=== PATIENT | female | born 1965 | race Caucasian/White ===

== ENCOUNTER 2024-07-29 10:57 | Inpatient (IN) | payer OTHER, SELFPAY ==
--- NOTE | ~2024-07-29 | CT_ITS ---
EXAMINATION: CTA NECK WITH CONTRAST (STROKE) CTA BRAIN WITH CONTRAST (STROKE) CLINICAL INFORMATION: Suspect acute stroke. Assess for major vessel occlusion. Please call report. COMPARISON: None available. TECHNIQUE: CTA of the head and neck was performed in the axial plane from the mediastinum to the skull vertex using 70 mL Omnipaque 350 intravenous contrast. Additional reformatted multiplanar images including maximum intensity projection MIP images are generated on the CT workstation. This CT examination was performed using dose optimization techniques as appropriate, variously including the following: *Automated exposure control *Adjustment of mA and/or kV according to patient size (this includes techniques or standardized protocols for targeted exams where dose is matched to indication/reason for exam; i.e. extremities or head) *Use of iterative reconstruction technique DLP: 650 mGy/cm. FINDINGS: The degree of stenosis determined by criteria similar to NASCET. Brain: Contrast enhanced CT reveals normal symmetry of vascularity throughout the cerebral and cerebellar hemispheres. No focal enhancing mass or mass effect seen. The lateral ventricles are symmetrical and appear almost normal. Chest CTA: The thoracic arch with widely patent. There is a three-vessel branching of the arch with widely patent branches. There is normal origin of bilateral carotid arteries and bilateral vertebral arteries of the subclavian artery. The left vertebral artery is slightly larger and likely dominant compared to right side. Neck CTA: Both vertebral arteries are widely patent throughout the neck without dissection or aneurysm. Intracranially the left vertebral artery is larger and likely dominant. Both carotid arteries are widely patent at their origin and to the course of the neck. The bifurcate normally into internal and extra carotid artery. Both internal carotid arteries are widely patent throughout the neck without any aneurysm or dissection. The extent into the petrous canal and are patent. Visualized cervical spine, alignment and the paravertebral soft tissues are normal. The neck soft tissues are unremarkable. Brain CTA: There is normal bilateral symmetrical internal carotid artery extending through the petrous, cavernous and supraclinoid ICA segment. The left internal carotid artery bifurcates into anterior and middle cerebral artery. The anterior middle sacral arteries are widely patent. There is a prominent anterior connecting artery between the left A2 and right A2 segments. The M2 segment on the left is widely patent. There is no paucity of vascularity in left cerebral hemisphere. The right internal carotid supraclinoid segment continues is right MCA. The anterior cerebral arteries not visualized. This could be congenital hypoplastic. However new or old thrombus resulting in occlusion is hard to exclude. Patient apparently has an outside A which is not available at this time for comparison. Bilateral transverse, sigmoid sinuses an internal jugular vein are widely patent. The straight sinus, internal cerebral veins and superior sagittal sinus is patent. 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 Similar findings can be seen with acute embolus. However similar findings were noted on the remote CTA of the brain after speaking to IR Department at [facility]. The old CTA brain is not available at our institution. No intracranial aneurysm or dissection seen. The venous sinuses are patent No carotid or vertebral artery dissection, occlusion or aneurysm. This critical test result is communicated to: Dr. Black Aleman in ER immediately after the exam was completed at 11:30 AM Electronically signed by: John Hart MD 07/29/2024 03:22 PM EDT
--- NOTE | ~2024-07-29 | CT_ITS ---
EXAMINATION: CT HEAD WITHOUT CONTRAST (STROKE PROTOCOL) CLINICAL INFORMATION: Stroke protocol. Confusion and expressive achalasia COMPARISON: None available. TECHNIQUE: Contiguous axial imaging was performed from the skull base to vertex without intravenous administration of contrast. This CT examination was performed using dose optimization techniques as appropriate, variously including the following: *Automated exposure control *Adjustment of mA and/or kV according to patient size (this includes techniques or standardized protocols for targeted exams where dose is matched to indication/reason for exam; i.e. extremities or head) *Use of iterative reconstruction technique DLP: 597 mGy/cm. FINDINGS: There is no acute intra-axial, extra-axial bleed, masses or midline shift. There is no acute infarction in evolution. There is no edema. Montez to white matter differentiation is maintained normal. Bone windows reveal no calvarial abnormality. There is no scalp soft tissue abnormality. Bilateral paranasal sinuses and mastoid air cells are well-aerated. CT/CT head for STROKE IMPRESSION: No acute intracranial process seen. 07/29/2024 This critical result was discussed with Dr. Jordan at 11:30 a.m. on 07/29/2024. It was ascertained that the content and urgency of the report was understood at the time of direct communication. Electronically signed by: John Hart MD 07/29/2024 03:00 PM EDT
--- NOTE | ~2024-07-29 | MR_ITS ---
EXAMINATION: MR BRAIN WITHOUT IV CONTRAST HISTORY: Expressive aphasia R/O stroke TECHNIQUE: Sagittal T1, and axial T1, FLAIR, T2, gradient echo, and diffusion weighted MR images of the brain were obtained. COMPARISON: Correlation is made with an unenhanced head CT performed earlier in the day. FINDINGS: The brain parenchyma is unremarkable, demonstrating normal miller/white differentiation. No foci of abnormal signal intensity are identified. The ventricular system is normal in size and configuration. There is no mass effect or midline shift. No intra or extra-axial fluid collections are identified. There are no foci of restricted diffusion. Normal vascular flow voids are noted in the basilar and carotid arteries. The visualized paranasal sinuses are clear. MR/MR head/brain wo con IMPRESSION: Unremarkable MRI of the brain without contrast. Electronically signed by: Pato Copeland MD 07/29/2024 03:45 PM EDT
[2024-07-29 11:08] VITALS: BP 164/87; PULSE 76; RESP 16; O2SAT 97; BMI 31.1
[2024-07-29 11:11] LABS: Glucose, Whole Blood 243 mg/dL (60-115)
--- NOTE | 2024-07-29 11:13 | ED.NEUROSD ---
HPI - Neuro Symptoms/Deficit General Chief Complaint: Neuro Symptoms/Deficit Stated Complaint: High Sugar AMS Time Seen by Provider: 07/29/24 11:03 Source: patient and family (Lfbthe-to-eyk Harika) Mode of arrival: ambulatory Limitations: no limitations History of Present Illness HPI Narrative: 59-year-old female with a history of diabetes mellitus, diverticulitis, lupus, atrial fibrillation status post surgical procedure (3 years prior) on Eliquis who presents emergency department for evaluation of altered mental status with difficulty word finding . 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 The patient states that she started to feel funny and dizzy. She then had difficulty finding words. She did call her doctor and then called her ogwvfq-lu-tui Harika who was here in the emergency department. Harika states she got the phone call at around 10:30 and drove the patient here to the emergency department. During the drive the patient was coherent and was able and was able to use big words. The patient told her acdccc-cu-xgn that she has not been on her diabetic medications for some time since her insurance would not pay for them and no her sugars have been high. She did tell her ktjhrx-ns-bnw that she had diabetic ketoacidosis once in the past and her symptoms felt similar to that. Upon arrival to the emergency department the patient had increased difficulty with word finding and the ydfoft-mo-rxe notes that the patient is now not able to pronounce big words but he has only using small words to communicate. I evaluated the patient immediately upon her arrival into the emergency department. Patient has difficulty with word finding but is able to understand language without any difficulty. She was able to identify a pen, a watch, she was able to identify the month, year, her age and her date. Related Data Home Medications ?Medication ?Instructions ?Recorded ?Confirmed apixaban 5 mg tablet (Eliquis) 5 mg PO BID 07/29/24 07/29/24 cholecalciferol (vitamin D3) 50 50 mcg PO DAILY 07/29/24 07/29/24 mcg (2,000 unit) tablet (Vitamin D3) cyanocobalamin (vitamin B-12) 500 1,000 mcg PO DAILY 07/29/24 07/29/24 mcg tablet (Vitamin B-12) dutasteride 0.5 mg capsule 0.5 mg PO DAILY 07/29/24 07/29/24 guselkumab 100 mg/mL subcutaneous 100 mg subcut Q8W 07/29/24 07/29/24 auto-injector (Tremfya) magnesium glycinate 100 mg PO DAILY 07/29/24 07/29/24 metoprolol succinate 25 mg 25 mg PO DAILY 07/29/24 07/29/24 tablet,extended release 24 hr omeprazole 20 mg capsule,delayed 20 mg PO DAILY@0630 07/29/24 07/29/24 release pramipexole 0.125 mg tablet 0.375 mg PO DAILY 07/29/24 07/29/24 pregabalin 25 mg capsule 25 mg PO BEDTIME 07/29/24 07/29/24 Previous Rx's ?Medication ?Instructions ?Recorded cefuroxime axetil 250 mg tablet 250 mg PO BID #6 tabs 07/30/24 glipizide 2.5 mg tablet, extended 2.5 mg PO DAILY #90 tabs 07/30/24 release 24 hr Allergies Allergy/AdvReac Type Severity Reaction Status Date / Time Penicillins [PCN] Allergy Unknown Verified 07/29/24 11:09 food dyes Allergy Unknown Uncoded 07/29/24 16:25 Review of Systems Review of Systems: Yes Unobtainable due to mental condition [facility] Past Medical History Medical History Lupus (systemic lupus erythematosus) Paroxysmal A-fib Social History Social History Household Members: Family Housing: House Do you presently have visiting nurse or other home services: No Unable to assess alcohol history related to: Unable to respond Alcohol intake: never Patient Tobacco Use Status: Former Tobacco user service: No Physical Exam Vital Signs: Vital Signs: Last Vital Signs Temp 98.0 F 07/30/24 11:14 Pulse 70 07/30/24 11:14 Resp 18 07/30/24 11:14 BP 137/76 07/30/24 11:14 Pulse Ox 96 07/30/24 11:14 O2 Del Method Room Air 07/30/24 11:14 BMI result Body Mass Index 31.1 Vital signs were no Exam: General: Awake, that has an expressive aphasia which is slow but comprehensible, she has no difficulty understanding language. Head: Normocephalic, atraumatic EENT: PERRL, Lids normal, sclera normal, conjunctiva normal, nose normal , ears normal, throat without erythema or exudates Neck: Supple, no adenopathy Lung: breath sounds symmetric, no wheezing, rales or rhonchi Chest: symmetric movement, nontender Heart: regular rate and rhythm, normal S1, S2 no murmurs or rubs Abdomen: soft, non-tender, nondistended, normal bowel sounds Back: no vertebral tenderness, no CVAT Extremities: no deformities, moves all extremities symmetrically Neuro: General: Awake, alert, oriented, expressive aphasia no difficulty with comprehension cranial nerves This is 11 detector treat of okay can you spell the last on 8 for he ate [place] and dab IM you get permanent thank you buttock cranial nerves intact, moves all Cranial nerves: Cranial nerves 2-12 are intact Strength: 5/5 symmetric Medications Administered Discontinued Medications Generic Name Dose Route Start Last Admin Trade Name Freq PRN Reason Stop Dose Admin Apixaban 5 mg 07/29/24 13:27 07/29/24 13:40 Apixaban 5 Mg Tablet PO 07/29/24 13:28 5 mg ONCE ONE Administration Aspirin 81 mg 07/29/24 14:45 07/30/24 09:03 Aspirin 81 Mg Tab.Chew PO Not Given DAILY NILSA Ceftriaxone Sodium 1 gm 07/29/24 16:00 07/29/24 16:44 Ceftriaxone Sodium 1 Gm Vial IVPUSH 1 gm Q24H NILSA Administration Sodium Chloride 1,000 mls @ 999 mls/hr 07/29/24 11:15 07/29/24 15:54 Ns IV 07/29/24 12:15 Infused .Q1H1M NILSA Infusion Insulin Human Lispro 0 unit 07/29/24 21:00 07/30/24 12:21 Insulin Lispro 100 Unit/Ml 3 Ml Vial SUBCUT 2 unit QIDACHS NILSA Administration Protocol Iohexol 70 ml 07/29/24 11:25 07/29/24 11:29 Iohexol 350 Mg/Ml 100 Ml Infus..Btl IV 07/29/24 11:26 70 ml ONCE ONE Administration Sodium Chloride 3 ml 07/29/24 16:00 07/30/24 09:05 0.9 % Sodium Chloride Flush 3 Ml Syringe IVFLUSH 3 ml QSHIFT NILSA Administration Medical Decision Making Medical Decision Making MDM Narrative: 59-year-old female with a history of diabetes mellitus, diverticulitis, lupus, atrial fibrillation status post surgical procedure (3 years prior) on Eliquis who presents emergency department for evaluation of altered mental status with difficulty word finding . 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 The patient states that she started to feel funny and dizzy. She then had difficulty finding words. She did call her doctor and then called her mowqxu-so-nkd Harika who was here in the emergency department. Harika states she got the phone call at around 10:30 and drove the patient here to the emergency department. During the drive the patient was coherent and was able and was able to use big words. The patient told her djjupw-df-uev that she has not been on her diabetic medications for some time since her insurance would not pay for them and no her sugars have been high. She did tell her nkdsdc-eo-qnl that she had diabetic ketoacidosis once in the past and her symptoms felt similar to that. Upon arrival to the emergency department the patient had increased difficulty with word finding and the glrvoo-vd-lrt notes that the patient is now not able to pronounce big words but he has only using small words to communicate. I evaluated the patient immediately upon her arrival into the emergency department. Patient has difficulty with word finding but is able to understand language without any difficulty. She was able to identify a pen, a watch, she was able to identify the month, year, her age and her date. Vital signs were normal. Physical examination revealed an expressive aphasia with no other neurologic abnormalities. NIH stroke scale was 1. Differential diagnosis: ?Includes but is not limited to TIA, stroke, intracranial bleed, metabolic encephalopathy Course: My interpretation patient's laboratory evaluation is as follows: Normocytic anemia with an H&H of 12.6 and 36.9 with a MCV of 83.1. PT/INR and PTT were normal. VBG was normal with a pH of 7.40. BUN elevated 17 with a normal creatinine. Glucose elevated 208. Lactic acid elevated 2.2. Beta hydroxybutyrate was negative. Troponin was below detectable limits. UA was positive for nitrates negative for leukocyte esterase. Microscopic revealed 0-2 RBCs, 0-5 WBCs, 0 2 squamous cells, 4+ bacteria. Despite the high bacteria count I suspect that this is negative for urinary tract infection. CT brain was read by our radiologist Dr. Hart: No acute bleed or stroke seen CT angiogram head and neck was read by our radiologist, Dr. 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 He also made the point that this this finding would not explain her aphasia was you would be secondary to a left MCA clot. I also discuss the patient's presentation with our neurologist, Dr. Biswas the patient is on Eliquis and therefore she is not a TNK candidate. He recommended that the patient get an MRI of the brain and be admitted for further evaluation. The patient took her Eliquis last night and did not take her morning dose. Dr. Peña recommended continuing the patient's Eliquis 13:37 I did discuss the patient's presentation with the covering hospitalist, physician paperhanger assistant Meera Sousa and the patient was accepted onto the hospitalist service Admission/Observation Consideration of admission/observation: Escalation of care including admission/observation considered (Yes) Consult Healthcare Provider Management of the patient was discussed with: Hospitalist and Wedding Consultant ([facility] neurologist Dr. Biswas, [facility] interventional neurologist) Lab Data MDM Lab Attestation statement: I reviewed the patient's lab results. 07/30/24 06:22 07/29/24 11:48 Labs: Lab Results 07/29/24 07/29/24 07/29/24 Range/Units 11:05 11:33 11:47 WBC 5.0 (4.8-10.8) X10*3/uL RBC 4.44 (4.20-5.50) X10*6/uL Hgb 12.6 (12.0-16.0) g/dl Hct 36.9 L (37.0-47.0) % MCV 83.1 (80.0-98.0) fL MCH 28.4 (27.0-33.0) pg MCHC 34.1 (31.0-35.0) g/dl RDW 13.8 (11.0-16.0) % Plt Count 121 L (160-400) X10*3/uL MPV 10.3 (9.4-12.3) fL Immature Gran % (Auto) 0.6 H (0.0-0.4) % Neut % (Auto) 74.0 H (45-73) % Lymph % (Auto) 18.6 L (20-40) % Karnes % (Auto) 5.2 (2-11) % Eos % (Auto) 1.2 (0-4) % Baso % (Auto) 0.4 (0-2) % Lymph # (Auto) 0.9 L (1.2-4.9) X10*3/uL Karnes # (Auto) 0.3 (0.1-1.2) X10*3/uL Eos # (Auto) 0.1 (0.0-0.4) X10*3/uL Baso # (Auto) 0.0 (0.0-0.2) X10*3/uL Abs Immat Gran (auto) 0.03 (0.00-0.03) X10*3/uL Absolute Neuts (auto) 3.7 (2.0-8.3) x10*3/uL Absolute Nucleated RBC 0.000 (0.0-0.012) X10*3/uL Nucleated RBC % (auto) 0.0 (0.0-0.2) /100WBC PT 11.4 (10.9-12.4) SEC Whole Blood PT 12.0 (11.1-13.5) sec INR 1.0 (0.9-1.1) Whole Blood INR 1.0 (0.9-1.1) APTT 33.4 (26.0-36.8) SEC VBG pH (7.32-7.43) VBG pCO2 mmHg VBG pO2 mmHg VBG HCO3 (22-26) mmol/L VBG O2 Saturation % VBG Base Excess mmol/L Sodium (135-145) mmol/L Potassium (3.3-5.1) mmol/L Chloride (96-108) mmol/L Carbon Dioxide (22-29) mmol/L Anion Gap (12-20) BUN (9-16) mg/dL Creatinine (0.5-1.4) mg/dL Estim Creat Clear Calc Estimated GFR POC Glucose 243 H (60-115) mg/dL Random Glucose (60-115) mg/dL Estimat Average Glucose mg/dL Hemoglobin A1c % (<6.0) % Lactic Acid (0.5-2.0) mmol/L Calcium (8.4-10.2) mg/dL Magnesium (1.6-2.6) mg/dL Total Bilirubin (0.0-1.0) mg/dL Direct Bilirubin (0.0-0.5) mg/dL AST (5-31) U/L ALT (0-31) U/L Alkaline Phosphatase (39-117) U/L Troponin I High Sens (<3.5-17.0) ng/L Total Protein (6.5-8.0) g/dL Albumin (3.5-5.0) g/dL Triglycerides (<150) mg/dL Cholesterol (<200) mg/dL LDL Cholesterol, Calc (<100) mg/dL HDL Cholesterol (>40) mg/dL Beta-Hydroxybutyrate (0.02-0.27) mmol/L Urine Color Urine Appearance Urine pH (5.0-9.0) Ur Specific Clyde (1.005-1.025) Urine Protein (Neg-Trace) mg/dL Urine Glucose (UA) (Negative) mg/dL Urine Ketones (Negative) mg/dL Urine Blood (Negative) Urine Nitrite (Negative) Ur Leukocyte Esterase (Negative) Urine RBC (0-2) /HPF Urine WBC (0-5) /HPF Ur Squamous Epith Cells (0-2) /HPF Urine Bacteria (None Seen) Hyaline Casts (0-2) /LPF Influenza Type A (PCR) (Negative) Influenza Type B (PCR) (Negative) RSV RNA Qual (PCR) (Negative) SARS-CoV-2 RNA (RT-PCR) (Negative) 07/29/24 07/29/24 07/29/24 Range/Units 11:48 11:56 12:28 WBC (4.8-10.8) X10*3/uL RBC (4.20-5.50) X10*6/uL Hgb (12.0-16.0) g/dl Hct (37.0-47.0) % MCV (80.0-98.0) fL MCH (27.0-33.0) pg MCHC (31.0-35.0) g/dl RDW (11.0-16.0) % Plt Count (160-400) X10*3/uL MPV (9.4-12.3) fL Immature Gran % (Auto) (0.0-0.4) % Neut % (Auto) (45-73) % Lymph % (Auto) (20-40) % Karnes % (Auto) (2-11) % Eos % (Auto) (0-4) % Baso % (Auto) (0-2) % Lymph # (Auto) (1.2-4.9) X10*3/uL Karnes # (Auto) (0.1-1.2) X10*3/uL Eos # (Auto) (0.0-0.4) X10*3/uL Baso # (Auto) (0.0-0.2) X10*3/uL Abs Immat Gran (auto) (0.00-0.03) X10*3/uL Absolute Neuts (auto) (2.0-8.3) x10*3/uL Absolute Nucleated RBC (0.0-0.012) X10*3/uL Nucleated RBC % (auto) (0.0-0.2) /100WBC PT (10.9-12.4) SEC Whole Blood PT (11.1-13.5) sec INR (0.9-1.1) Whole Blood INR (0.9-1.1) APTT (26.0-36.8) SEC VBG pH 7.40 (7.32-7.43) VBG pCO2 38 mmHg VBG pO2 75 mmHg VBG HCO3 24 (22-26) mmol/L VBG O2 Saturation 94.0 % VBG Base Excess -0.1 mmol/L Sodium 137 (135-145) mmol/L Potassium 4.1 (3.3-5.1) mmol/L Chloride 106 (96-108) mmol/L Carbon Dioxide 24 (22-29) mmol/L Anion Gap 11 L (12-20) BUN 17 H (9-16) mg/dL Creatinine 0.61 (0.5-1.4) mg/dL Estim Creat Clear Calc 101.6 Estimated GFR > 60 POC Glucose (60-115) mg/dL Random Glucose 208 H (60-115) mg/dL Estimat Average Glucose 146 mg/dL Hemoglobin A1c % 6.7 H (<6.0) % Lactic Acid 2.2 H* (0.5-2.0) mmol/L Calcium 9.6 (8.4-10.2) mg/dL Magnesium 2.0 (1.6-2.6) mg/dL Total Bilirubin 0.3 (0.0-1.0) mg/dL Direct Bilirubin 0.1 (0.0-0.5) mg/dL AST 18 (5-31) U/L ALT 20 (0-31) U/L Alkaline Phosphatase 111 (39-117) U/L Troponin I High Sens < 2.7 (<3.5-17.0) ng/L Total Protein 5.9 L (6.5-8.0) g/dL Albumin 3.7 (3.5-5.0) g/dL Triglycerides 242 H (<150) mg/dL Cholesterol 134 (<200) mg/dL LDL Cholesterol, Calc 47 (<100) mg/dL HDL Cholesterol 39 L (>40) mg/dL Beta-Hydroxybutyrate 0.08 (0.02-0.27) mmol/L Urine Color Yellow Urine Appearance Clear Urine pH 6.5 (5.0-9.0) Ur Specific Clyde >= 1.030 H (1.005-1.025) Urine Protein Negative (Neg-Trace) mg/dL Urine Glucose (UA) >=1000 H (Negative) mg/dL Urine Ketones Negative (Negative) mg/dL Urine Blood Negative (Negative) Urine Nitrite Positive H (Negative) Ur Leukocyte Esterase Negative (Negative) Urine RBC 0-2 (0-2) /HPF Urine WBC 0-5 (0-5) /HPF Ur Squamous Epith Cells 0-2 (0-2) /HPF Urine Bacteria 4+ (None Seen) Hyaline Casts 0-2 (0-2) /LPF Influenza Type A (PCR) NEGATIVE (Negative) Influenza Type B (PCR) NEGATIVE (Negative) RSV RNA Qual (PCR) NEGATIVE (Negative) SARS-CoV-2 RNA (RT-PCR) NEGATIVE (Negative) Independent Interpretation I performed an independent interpretation of an: EKG Interpretation: My independent interpretation patient's 12 EKG done on 07/29/2024 at 12:47 hours is as follows: Normal sinus rhythm rate of 75, normal RI interval, QRS duration QTC interval, no ST segment elevation, no ST segment depression, no significant T-wave abnormalities Q-wave in lead 3, no PACs, no PVCs, no old EKG for comparison Radiology Impression Discussion of test interpretation with radiology: I have reviewed the radiologist's reading. Radiologist Impression: Please see [facility] for radiologist reading Independent Historian Clinical information obtained from an independent historian. History obtained from or confirmed by: Spouse and Other (Tarzhu-qu-jox, Harika) Chronic Conditions Patient?s care impacted by: Diabetes and Other (Lupus) NIH Stroke Scale Internal: Initial- Upon Arrival Level of Consciousness: Alert Level of Consciousness Questions: Answers both questions correctly Level of Consciousness Commands: Performs both tasks correctly Best Gaze: Normal Visual: No visual loss Facial Palsy: Normal Motor Arm (Right): No drift Motor Arm (Left): No drift Motor Leg (Right): No drift Motor Leg (Left): No drift Limb Ataxia: Absent Sensory: Normal Best Language: Mild to moderate aphasia Dysarthia: Normal Extinction and Inattention: No abnormality Score: 1 Critical Care Time Critical Care Time Critical Care Time: Yes Total Critical Care Time: 75 Attestation: Critical Care: The patient was critically ill with a high probability of imminent or life threatening deterioration. I spent greater than 30 minutes of discontinuous time evaluating the patient,delivering critical care at the bedside, discussing and evaluating pertinent data with consultants. Critical care time does not include time spent performing separately billable procedures or teaching. Total time spent performing critical care was 75 minutes. Discharge Plan Discharge Clinical Impression: Stroke, Expressive aphasia Patient Disposition: Admitted As Inpatient Interventions: Admission Worksheet (ED) Last Done: 07/29/24 16:33 Discharge Date/Time: 07/29/24 17:25
[2024-07-29 11:16] VITALS: BP 120/68; PULSE 82; RESP 16; TEMP 36.2; O2SAT 97
[2024-07-29] MEDS: iohexoL 350 MG/ML 100 ML INFUS..BTL 70 ML IV (11:29)
[2024-07-29] MEDS: 0.9 % Sodium Chloride 1,000 ML 999 ML IV (11:42)
[2024-07-29 11:53] LABS: MANUAL DIFF FLAG NO
[2024-07-29 11:56] LABS: Basophils Percent Auto 0.4 % (0-2); Mean Corpuscular HGB Conc 34.1 g/dl (31.0-35.0); Mean Corpuscular Hemoglobin 28.4 pg (27.0-33.0); PLT CLUMP 1; Red Cell Distribution Width 13.8 % (11.0-16.0); SCAN SMEAR FLAG 1
[2024-07-29 11:57] LABS: Eosinophils Absolute Auto 0.1 X10*3/uL (0.0-0.4); Eosinophils Percent Auto 1.2 % (0-4); Hematocrit 36.9 % (37.0-47.0); Hemoglobin 12.6 g/dl (12.0-16.0); Imm Gran Abs Auto 0.03 X10*3/uL (0.00-0.03); Imm Gran Pct Auto 0.6 % (0.0-0.4); Lymphocytes Absolute Auto 0.9 X10*3/uL (1.2-4.9); Lymphocytes Percent Auto 18.6 % (20-40); Mean Corpuscular Volume 83.1 fL (80.0-98.0); Mean Platelet Volume 10.3 fL (9.4-12.3); Monocytes Absolute Auto 0.3 X10*3/uL (0.1-1.2); Monocytes Percent Auto 5.2 % (2-11); Neutrophils Absolute Auto 3.7 x10*3/uL (2.0-8.3); Red Blood Count 4.44 X10*6/uL (4.20-5.50)
[2024-07-29 12:00] LABS: Platelet Count 121 X10*3/uL (160-400)
[2024-07-29 12:01] LABS: VBG Base Excess -0.1 mmol/L; VBG HCO3 24 mmol/L (22-26); VBG pCO2 38 mmHg; VBG pO2 75 mmHg
[2024-07-29 12:01] LABS: Venous Blood Gas Refer to POC result
[2024-07-29 12:09] LABS: Prothrombin Time 11.4 SEC (10.9-12.4)
[2024-07-29 12:12] LABS: Partial Thromboplastin Time 33.4 SEC (26.0-36.8)
[2024-07-29 12:13] LABS: Alanine Aminotransferase 20 U/L (0-31); Albumin Level 3.7 g/dL (3.5-5.0); Anion Gap 11 (12-20); Aspartate Amino Transferase 18 U/L (5-31); Beta-Hydroxybutyrate 0.08 mmol/L (0.02-0.27); Bilirubin Direct 0.1 mg/dL (0.0-0.5); Bilirubin Total 0.3 mg/dL (0.0-1.0); Blood Urea Nitrogen 17 mg/dL (9-16); Calcium 9.6 mg/dL (8.4-10.2); Carbon Dioxide 24 mmol/L (22-29); Chloride 106 mmol/L (96-108); Creatinine Clr Calc Pharmacy 101.6; Estimated Glomerular Filt Rate > 60; Glucose Random 208 mg/dL (60-115); Potassium 4.1 mmol/L (3.3-5.1); Sodium 137 mmol/L (135-145); Total Protein 5.9 g/dL (6.5-8.0)
[2024-07-29 12:14] LABS: Lactic Acid 2.2 mmol/L (0.5-2.0)
[2024-07-29 12:25] LABS: Troponin-I High Sensitivity < 2.7 ng/L (<3.5-17.0)
[2024-07-29 12:36] LABS: Appearance Urine Clear; Color Urine Yellow; Glucose Urine UA >=1000 mg/dL (Negative); Leukocyte Esterase Urine Negative (Negative); Nitrite Urine Positive (Negative); PH 6.5 (5.0-9.0); Specific Gravity - Urine >= 1.030 (1.005-1.025); UMIC TRIGGER UACC YES; Urine Blood Negative (Negative); Urine Ketones Negative (Negative); Urine Protein Negative (Neg-Trace)
[2024-07-29 12:40] LABS: Bacteria Urine 4+ (None Seen); Hyaline Casts Urine 0-2 /LPF (0-2); RBC Urine 0-2 /HPF (0-2); Squamous Epithelial Cell Urine 0-2 /HPF (0-2); UACC Culture Trigger YES; WBC Urine 0-5 /HPF (0-5)
--- NOTE | 2024-07-29 12:43 | ECG_ITS ---
Test Reason : STROKE Blood Pressure : */* mmHG Vent. Rate : 75 BPM Atrial Rate : 75 BPM P-R Int : 174 ms QRS Dur : 88 ms QT Int : 366 ms P-R-T Axes : 56 1 31 degrees QTcB Int : 408 ms Normal sinus rhythm with sinus arrhythmia Low voltage QRS Possible Inferior infarct , age undetermined Abnormal ECG No previous ECGs available Referred By: Stef Aleman Electronically Signed By: JAVIER BALL
[2024-07-29 12:49] VITALS: BP 150/73; PULSE 76; RESP 18; TEMP 36.4; O2SAT 100
--- OUTSIDE RECORDS SUMMARY | 2024-07-29 13:02 | XMS_ITS | Patient Health Record ---
Author Organization [facility] Address [address] [place] [address] Care Team Providers Care Furniture Reproducer Name Role Phone Michael Snow MD Primary Care Provider Unavail able Black, Anitha Unavailable [phone] Allergies Allergen (clinical drug ingredient) Drug/Non Drug Allergy documented on EMR Reaction Allergy Type Onset Date Status amoxicillin Amoxicillin Unknown Drug Allergy Act yomaira Reason For Referral No Information Medications Medication SIG (Take, Route, Frequency, Duration) Notes Start Date End Date Status Topamax Not-Taking Doxycycline Hyclate 100 MG 1 capsule Orally Twice a day for 5 days 10/03/2018 Not-Taking Gabapentin 100 MG TAKE 1 CAPSULE BY MO [facility] EVERY NIGHT for 90 Active HYDROcodone-Acetaminophe n Not-Taking Doxycycline Monohydrate 100 MG 1 capsule Orally every 12 hrs for 5 days 11/01/2020 Active Vicodin Not-Taking Mirapex Active Omeprazole 20 MG take 1 capsule by mo ut twice a day Oral for 90 Active Aimovig 140 MG/ML Subcutaneous Active Propranolol HCl ER A ctive Ozempic Active Immunizations Vaccine Route Administration Date Status Comme nts Influenza Unknown 11/16/2016 Administered Influenza Unknown 11/25/2017 Administered Influenza Unknown 11/25/2018 Administered Influenza Unknown 10/27/2019 Administered Social History Tobacco Use: Social History Observation Description Date Details (start date - stop date) Former Smoker NA - NA Tobacco Use/Smoking Question Answer Notes Are you a: former smoker When did you stop smoking? 2009 How long has it been since you last smoked? < 1 month Additional Findings: Tobacco Non-User Current no n-smoker Alcohol Screen Question Answer Notes Did you have a drink containing alcohol in the p ast year? No Points 0 Interpretation Negative Tobacco use other than smoking: Question Answer Notes Are you an other tobacco user? 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) Active confirmed Plan Of Treatment Pending Test Test Name Order Date X ray : Foot, left 3V 02/05/2017 X ray : Foot, left 3V 04/29/2019 X ray : Foot, right 3V 04/29/2019 [id number] Plate 02/05/2017 [id number] Plate 09/25/2017 [id number], [id number]/[id number], JOINT/BURSA 0 02/26/2017 Insurance Providers Payer Name Payer Address Payer Phone Subscriber Number Group Number Insured Name Patient Relationship to Insured Coverage Start Date Coverage End Date [employer] [address] [place]AM[place] [phone] [id number] Leida Dinh Self - patient is the insured Medical (General) History Medical History History ICD Code Arthritis asthma Back,Hip,and Knee pain Diabetic Diverticulosis Headaches Chicken pox Lupus Psoriasis Raynauds syndrome Joint implants/screws Surgical History Surgery Date(Month/Year) Fusion back 2006 Discetomy 1998 Lamonectomy 2000 hysterectomy
[2024-07-29 13:05] LABS: Alkaline Phosphatase 111 U/L (39-117)
[2024-07-29 13:10] LABS: Influenza A PCR NEGATIVE (Negative); Influenza B PCR NEGATIVE (Negative); Resp Syncy Virus RNA Qual PCR NEGATIVE (Negative); SARS COV2 PCR INHOUSE NEGATIVE (Negative)
--- NOTE | 2024-07-29 13:32 | PM.IMHP ---
History of Present Illness Date of Service: 07/29/24 Attending physician on admission: Prashant Mendoza Chief Complaint: Difficulty word finding Pt is a 59-year-old female with a PMH significant for paroxysmal AFib on Eliquis s/p ablation,?lupus, mnt-nsiqfbc-gjyowvsum type 2 diabetes, peripheral neuropathy, hx of complex migraines, and GERD who presents to the ED with?difficulty word finding. Pt seen and evaluated at bedside where she continues to experience significant expressive aphasia. Follows commands and is able to write in complete sentences, but with very limited vocabulary and able to speak in 1-2 word sentences only. HPI supplemented by sister at bedside. Pt reports was in her normal state of health prior to symptom onset this morning. 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 POC was apparently in the 400s. Initially called PCP and then [id number] who drove her to the ED for further evaluation. Pt has expressive aphasia progressively worsened during car ride. Initially pt was having difficulty speaking multi-syllabic words, then eventually unable to speak more than 1 or 2 words at a time. Also complains of 3/10 headache, chest heaviness, generalized weakness, and feeling off balance, as well as discomfort with urination which feels like previous UTIs. Pt denies shortness or breath or difficulty breathing. No fever, chills, nausea, vomiting, abdominal pain. Of note, in 2019 pt presented to [facility] with right-sided facial droop. Pt had CTA at that time which showed right ICA stenosis thought to be congenital in nature. Additional workup for stroke was negative, and pt was diagnosed with a complex migraine. Pt has been experiencing increasing life stressors recently, including loss of job and impending loss of health insurance. Has been on Ozempic as monotherapy for plf-qlnwfte-nspopkoqh type 2 diabetes, though has been unable to purchase the medication in the past 1-2 months. In the ED pt was hypertensive up to 164/87, vitals otherwise stable and WNL. Labs were significant for platelets 121, POC 243, and lactic acid 2.2. No leukocytosis. Stable H&H. No significant electrolyte abnormalities. Renal function WNL. Hepatic function WNL. Troponin negative. Beta hydroxybutyrate 0.08. VBG reassuring. UA with positive nitrites, negative leukocyte esterase, 0-5 wbc's, and 4+ bacteria. Tested negative for flu, COVID, RSV. CTA of head negative for acute intracranial process. 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 EKG demonstrated normal sinus rhythm with sinus arrhythmia but no evidence of ST elevations or depressions. Pt was treated in the ED with IVF. Pt is admitted to the hospital for treatment and further evaluation of expressive aphasia concerning for acute CVA. Review of Systems Review of Systems: Negative except for that which is stated in the [facility] Medical History (Updated 07/29/24 @ 16:27 by JAGJIT Lobato) Lupus (systemic lupus erythematosus) Paroxysmal A-fib Social History Unable to assess alcohol history related to: Unable to respond Alcohol intake: never Patient Tobacco Use Status: Never used Tobacco Smoked in Last 30 Days: No Use of substances other than those prescribed or required for medical reasons: No Advance Directives: No Advance Directives Information Provided: Yes Nutrition Risks: On aspiration precautions Patient : No Meds Allergies Allergy/AdvReac Type Severity Reaction Status Date / Time Penicillins [PCN] Allergy Unknown Verified 07/29/24 11:09 food dyes Allergy Unknown Uncoded 07/29/24 16:25 Home Medications ?Medication ?Instructions ?Recorded ?Confirmed ?Last Taken ?Type dutasteride 0.5 mg capsule 0.5 mg PO DAILY 07/29/24 Unknown History guselkumab 100 mg/mL subcutaneous mg subcut 07/29/24 Unknown History auto-injector (Tremfya) metoprolol succinate 25 mg 25 mg PO DAILY 07/29/24 Unknown History tablet,extended release 24 hr omeprazole 20 mg capsule,delayed 20 mg PO DAILY 07/29/24 Unknown History release pramipexole 0.125 mg tablet 0.25 mg PO BID 07/29/24 Unknown History pregabalin 25 mg capsule 50 mg PO BEDTIME 07/29/24 Unknown History semaglutide 2 mg/dose (8 mg/3 mL) 2 mg subcut QWEEK 07/29/24 Unknown History subcutaneous pen injector (Ozempic) Physical Exam Vital Signs and Narrative: Vital Signs: Last Vital Signs Temp 97.5 F 07/29/24 12:49 Pulse 76 07/29/24 12:49 Resp 18 07/29/24 12:49 BP 150/73 H 07/29/24 12:49 Pulse Ox 100 07/29/24 12:49 O2 Del Method Room Air 07/29/24 12:49 BMI result Body Mass Index 31.1 General: AOx3, no acute distress Resp: CTA bilaterally CVS: S1, S2, RRR GI: +BS, NT, no distention Skin: Warm, dry Neuro: Pt with significant expressive aphasia. Speaking in 1-2 word sentences only. Negative pronator drift. Strength preserved and symmetric of upper and lower extremities bilaterally. Face symmetric without apparent droop. Extremities: No edema Psych: Pt frustrated, tearful Results Labs 07/29/24 11:47 07/29/24 11:48 Labs: Laboratory Results - last 24 hr 07/29/24 07/29/24 07/29/24 11:05 11:33 11:47 MCV 83.1 MCH 28.4 MCHC 34.1 RDW 13.8 Plt Count 121 L MPV 10.3 Immature Gran % (Auto) 0.6 H Neut % (Auto) 74.0 H Lymph % (Auto) 18.6 L [place] % (Auto) 5.2 Eos % (Auto) 1.2 Baso % (Auto) 0.4 Lymph # (Auto) 0.9 L [place] # (Auto) 0.3 Eos # (Auto) 0.1 Baso # (Auto) 0.0 Abs Immat Gran (auto) 0.03 Absolute Neuts (auto) 3.7 Absolute Nucleated RBC 0.000 Nucleated RBC % (auto) 0.0 PT 11.4 Whole Blood PT 12.0 INR 1.0 Whole Blood INR 1.0 APTT 33.4 VBG pH VBG pCO2 VBG pO2 VBG HCO3 VBG O2 Saturation VBG Base Excess Anion Gap Estim Creat Clear Calc Estimated GFR POC Glucose 243 H Random Glucose Lactic Acid Calcium Magnesium Total Bilirubin Direct Bilirubin AST ALT Alkaline Phosphatase Troponin I High Sens Total Protein Albumin Beta-Hydroxybutyrate Urine Color Urine Appearance Urine pH Ur Specific [place] Urine Protein Urine Glucose (UA) Urine Ketones Urine Blood Urine Nitrite Ur Leukocyte Esterase Urine RBC Urine WBC Ur Squamous Epith Cells Urine Bacteria Hyaline Casts Influenza Type A (PCR) Influenza Type B (PCR) RSV RNA Qual (PCR) SARS-CoV-2 RNA (RT-PCR) 07/29/24 07/29/24 07/29/24 11:48 11:56 12:28 MCV MCH MCHC RDW Plt Count MPV Immature Gran % (Auto) Neut % (Auto) Lymph % (Auto) [place] % (Auto) Eos % (Auto) Baso % (Auto) Lymph # (Auto) [place] # (Auto) Eos # (Auto) Baso # (Auto) Abs Immat Gran (auto) Absolute Neuts (auto) Absolute Nucleated RBC Nucleated RBC % (auto) PT Whole Blood PT INR Whole Blood INR APTT VBG pH 7.40 VBG pCO2 38 VBG pO2 75 VBG HCO3 24 VBG O2 Saturation 94.0 VBG Base Excess -0.1 Anion Gap 11 L Estim Creat Clear Calc 101.6 Estimated GFR > 60 POC Glucose Random Glucose 208 H Lactic Acid 2.2 H* Calcium 9.6 Magnesium 2.0 Total Bilirubin 0.3 Direct Bilirubin 0.1 AST 18 ALT 20 Alkaline Phosphatase 111 Troponin I High Sens < 2.7 Total Protein 5.9 L Albumin 3.7 Beta-Hydroxybutyrate 0.08 Urine Color Yellow Urine Appearance Clear Urine pH 6.5 Ur Specific [place] >= 1.030 H Urine Protein Negative Urine Glucose (UA) >=1000 H Urine Ketones Negative Urine Blood Negative Urine Nitrite Positive H Ur Leukocyte Esterase Negative Urine RBC 0-2 Urine WBC 0-5 Ur Squamous Epith Cells 0-2 Urine Bacteria 4+ Hyaline Casts 0-2 Influenza Type A (PCR) NEGATIVE Influenza Type B (PCR) NEGATIVE RSV RNA Qual (PCR) NEGATIVE SARS-CoV-2 RNA (RT-PCR) NEGATIVE Assessment and Plan (1) Expressive aphasia: Status: Acute Plan Pt is a 59-year-old female with a PMH significant for paroxysmal AFib on Eliquis s/p ablation,?lupus, khh-hzgjtrr-yapjmxzqs type 2 diabetes, peripheral neuropathy, hx of complex migraines, and GERD who presents to the ED with?difficulty word finding. 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, similar to remote CTA from [facility] in 2019 Concerning for acute CVA vs complex migraine We will get MRI of head/brain Check lipid panel We will give aspirin 81 mg Neurology consult PT/OT/speech therapy Monitor on telemetry Chest heaviness Likely in the setting of above EKG nonischemic, initial troponin negative The pt will be monitored on telemetry Acute UTI Pt with urinary discomfort, UA positive for nitrites and 4+ bacteria Will treat with ceftriaxone, started 07/29/2024 No sepsis Follow urine culture Acute lactic acidosis Not due to sepsis N SIRS criteria at 14:26 Gzi-gexqsxf-zwczfwbww type 2 diabetes Has not been able to afford Ozempic for the past few months POC in the 300s at home, 208 at time presentation A1c 6.7 Place on sliding scale insulin, diabetic diet Paroxysmal AFib S/p ablation 2-3 years ago Continue metoprolol, Eliquis Lupus Not on home meds Peripheral neuropathy Continue pregabalin Full Code Attending:?Dr. Mendoza DVT Prophylaxis: On Eliquis Pt will require a hospitalization of at least two nights for treatment of expressive aphasia concerning for acute CVA that will require additional stroke workup and cardiac monitoring. Quality Stroke Does the patient have a stroke diagnosis?: No Reason for No Anti-thrombotic by Day Two: Contraindicated (Pt on Eliquis) VTE Prior VTE?: No VTE Risk Level:: Medical - moderate - high VTE Device Contraindication: Treatment Not Indicated VTE Drug Contraindication: N/A - Med Ordered
[2024-07-29] MEDS: Apixaban 5 MG TABLET PO (13:40)
[2024-07-29 13:53] LABS: Reflex Lactate? Lactic Acid Added
[2024-07-29 14:03] LABS: Estimated Average Glucose 146 mg/dL; Hemoglobin A1C 164.2756 umol/L; Hemoglobin A1c % 6.7 % (<6.0); Total Hemoglobin (HGBA1C) 3297.1851 umol/L
--- NOTE | 2024-07-29 14:49 | MHC.STROKE ---
Met with patient and family in ED room 11. Pt is awake, alert and tearful. Per family, word finding/speech difficulty started this morning around 0930. Family member feels that it is progressively getting worse. Hx of Afib and is on Eliquis Pt noted to understand conversation however frustrated that she is unable to communicate and is having word finding difficulty. Pt is moving all extremities and is out of bed to the commode. Stroke Education reviewed with patient and family. Pamphlet provided. Questions answered. Risk factors discussed including medical history, medications, activity, diet and social history. Plan for admission and MRI. Pt is recently taken from ED to MRI to obtain imaging. Will continue to assist as needed.
[2024-07-29 14:50] LABS: ~Lactic Acid-LAB USE ONLY 2.3 mmol/L (0.5-2.0)
[2024-07-29 15:04] LABS: Cancel Lactic Acid Canceled
[2024-07-29 15:20] LABS: Cholesterol 134 mg/dL (<200); HDL Cholesterol 39 mg/dL (>40); LDL Cholesterol Calculated 47 mg/dL (<100); Triglycerides 242 mg/dL (<150)
--- NOTE | 2024-07-29 15:26 | P.CNNE_ITS ---
History of Present Illness Data of Consult Service Date: 07/29/24 Primary Care Provider: Michael Snow MD [facility] Reason for consult: speech problems with inability to speak This is a 59-year-old female with a h/o paroxysmal AFib on Eliquis s/p ablation,?and hx of ? complex migraines x1 with neurological sx of facial droop many years ago admitted to [facility] and discharged with Dx of complex migraine. who presents to the ED with? significant expressive aphasia and hesitant speech. Follows commands and is able to write in complete sentences, but with very limited vocabulary and able to speak in 1-2 word senteces only. In the ED pt was hypertensive up to 164/87, MRI normal [facility] Social History Social History Unable to assess alcohol history related to: Unable to respond Alcohol intake: never Smoked in Last 30 Days: No Use of substances other than those prescribed or required for medical reasons: No Advance Directives: No Advance Directives Information Provided: Yes Meds Allergies Allergy/AdvReac Type Severity Reaction Status Date / Time Penicillins [PCN] Allergy Unknown Verified 07/29/24 11:09 Active Medications: Current Medications Acetaminophen (Acetaminophen 325 Mg Tablet) 650 mg PO Q6H PRN PRN Reason: Pain, Mild 1-3,fever,headache Aspirin (Aspirin 81 Mg Tab.Chew) 81 mg PO DAILY NILSA Calcium Carbonate (Calcium Carbonate 750 Mg Tab.Chew) 750 mg PO Q4H PRN PRN Reason: Heartburn Magnesium Hydroxide (Milk Of Magnesia 30 Ml Oral.Susp) 30 ml PO DAILY PRN PRN Reason: Constipation Melatonin (Melatonin 3 Mg Tablet) 6 mg PO BEDTIME PRN PRN Reason: Insomnia Sodium Chloride (0.9 % Sodium Chloride Flush 3 Ml Syringe) 3 ml IVFLUSH QSHIFT [facility] Home Medications ?Medication ?Instructions ?Recorded ?Confirmed ?Last Taken ?Type dutasteride 0.5 mg capsule 0.5 mg PO DAILY 07/29/24 Unknown History guselkumab 100 mg/mL subcutaneous mg subcut 07/29/24 Unknown History auto-injector (Tremfya) metoprolol succinate 25 mg 25 mg PO DAILY 07/29/24 Unknown History tablet,extended release 24 hr omeprazole 20 mg capsule,delayed 20 mg PO DAILY 07/29/24 Unknown History release pramipexole 0.125 mg tablet 0.25 mg PO BID 07/29/24 Unknown History pregabalin 25 mg capsule 50 mg PO BEDTIME 07/29/24 Unknown History semaglutide 2 mg/dose (8 mg/3 mL) 2 mg subcut QWEEK 07/29/24 Unknown History subcutaneous pen injector (Ozempic) Physical Exam 2 Vital Signs: Vital Signs: Last Vital Signs Temp 97.5 F 07/29/24 12:49 Pulse 76 07/29/24 12:49 Resp 18 07/29/24 12:49 BP 150/73 H 07/29/24 12:49 Pulse Ox 100 07/29/24 12:49 O2 Del Method Room Air 07/29/24 12:49 BMI result Body Mass Index 31.1 Neuro: Other: Expressive dysphasia in a pattern that is highly suggestive of a functional disorder ( conversion reaction) Otherwise normal exam Results Labs 07/29/24 11:47 07/29/24 11:48 Labs: Short CBC 07/29/24 Range/Units 11:47 WBC 5.0 (4.8-10.8) X10*3/uL Hgb 12.6 (12.0-16.0) g/dl Hct 36.9 L (37.0-47.0) % Plt Count 121 L (160-400) X10*3/uL BMP 07/29/24 11:48 Sodium 137 Potassium 4.1 Chloride 106 Carbon Dioxide 24 BUN 17 H Creatinine 0.61 Calcium 9.6 Liver Function 07/29/24 Range/Units 11:48 Total Bilirubin 0.3 (0.0-1.0) mg/dL Direct Bilirubin 0.1 (0.0-0.5) mg/dL AST 18 (5-31) U/L ALT 20 (0-31) U/L Alkaline Phosphatase 111 (39-117) U/L Albumin 3.7 (3.5-5.0) g/dL Urine 07/29/24 Range/Units 12:28 Urine Color Yellow Urine Appearance Clear Urine pH 6.5 (5.0-9.0) Ur Specific [place] >= 1.030 H (1.005-1.025) Urine Protein Negative (Neg-Trace) mg/dL Urine Glucose (UA) >=1000 H (Negative) mg/dL Assessment and Plan (1) Expressive aphasia: Status: Acute 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 No evidence of stroke. Recom. Reassurance . discussed Dx with patient and family. Low dose Lorazepam. Counselling in stress management Procedures Date of Service Date of Service: 07/29/24
--- NOTE | 2024-07-29 15:54 | PC.NURSE ---
pt returned from MRI, alarm security or surveillance monitor applied, hypertensive, other vss. pt reports difficulty word finding and expressing herself. appears frustrated and tearful during attempts to answer questions.
[2024-07-29 16:00] VITALS: BP 135/75; PULSE 66; RESP 21; TEMP 36.6; O2SAT 96
--- NOTE | 2024-07-29 16:23 | PC.NURSE ---
pt reports allergy to food dyes, needs dye free medication, provider notified.
[2024-07-29] MEDS: cefTRIAXone sodium 1 GM VIAL IVPUSH (16:44)
[2024-07-29] MEDS: 0.9 % Sodium Chloride Flush 3 ML SYRINGE IVFLUSH ×2 (16:44→21:02)
--- NOTE | 2024-07-29 17:21 | PHA.MEDREC ---
Addendum entered by Nicolasa Page RPh 07/29/24 17:39: reviewed by [facility] Original Note: Pharmacy Consult ? Medication Reconciliation Pharmacy has completed the medication reconciliation. Spoke with pt and pt CLAUDIA at bedside and pt was able to non-verbally confirm her medications with me. Pt confirmed she took the Tremfya last 07/04. Pt confirmed is taking the Pramipexole 0.125mg tabs by holding up 3 fingers for 3 tabs and 1 finger for once a day now and not twice. She also confirmed with her fingers that she takes 1 capsule of Pregabalin at bedtime now and not 2. The pt CLAUDIA confirmed the pt is not taking the Ozempic and has not in about 2 months due to insurance not covering it.
[2024-07-29 17:29] VITALS: BMI 28.6
[2024-07-29 17:56] LABS: Glucose, Whole Blood 134 mg/dL (60-115)
[2024-07-29 17:57] VITALS: BP 135/78; PULSE 74; RESP 16; TEMP 36.3; O2SAT 96
[2024-07-29 20:00] VITALS: BP 131/72; PULSE 72; RESP 18; TEMP 36.4; O2SAT 95
[2024-07-29 20:19] LABS: Glucose, Whole Blood 175 mg/dL (60-115)
[2024-07-29] MEDS: Insulin Lispro 100 UNIT/ML 3 ML VIAL SUBCUT (21:01)
[2024-07-30] VITALS: BP 118/81; PULSE 71; RESP 18; TEMP 36; O2SAT 98
[2024-07-30 03:53] VITALS: BP 109/64; PULSE 72; RESP 18; TEMP 35.9; O2SAT 95
[2024-07-30 06:21] LABS: Glucose, Whole Blood 177 mg/dL (60-115)
[2024-07-30 06:53] LABS: Hematocrit 38.9 % (37.0-47.0); Mean Corpuscular HGB Conc 33.4 g/dl (31.0-35.0); Mean Corpuscular Hemoglobin 27.8 pg (27.0-33.0); Mean Corpuscular Volume 83.3 fL (80.0-98.0); Mean Platelet Volume 10.2 fL (9.4-12.3); Platelet Count 125 X10*3/uL (160-400); Red Blood Count 4.67 X10*6/uL (4.20-5.50); Red Cell Distribution Width 13.9 % (11.0-16.0); White Blood Count 4.7 X10*3/uL (4.8-10.8)
[2024-07-30 07:15] VITALS: BP 138/73; PULSE 77; RESP 18; TEMP 36.2; O2SAT 97
[2024-07-30] MEDS: 0.9 % Sodium Chloride Flush 3 ML SYRINGE IVFLUSH (09:05)
[2024-07-30 09:32] LABS: Glucose, Whole Blood 296 mg/dL (60-115)
[2024-07-30] MEDS: Insulin Lispro 100 UNIT/ML 3 ML VIAL SUBCUT ×2 (10:51→12:21)
[2024-07-30 11:14] VITALS: BP 137/76; PULSE 70; RESP 18; TEMP 36.7; O2SAT 96
--- NOTE | 2024-07-30 11:22 | P.DS_ITS ---
DS: Providers Provider Date of Service: 07/30/24 Date of admission: 07/29/24 13:38 Date of discharge: 07/30/24 Primary care physician: Michael Snow MD Consults: 07/29/24 14:40 Consult to Neurology Routine Consulting Provider: [facility] Reason for consultation: Expressive aphasia, ?CVA DS: Diagnosis Discharge Diagnosis (1) Expressive aphasia: Status: Acute DS: Summary Hospital Course Hospital Course: from initial hpi: 59-year-old female with a PMH significant for paroxysmal AFib on Eliquis s/p ablation,?lupus, xdi-joovhvo-afwoggcfy type 2 diabetes, peripheral neuropathy, hx of complex migraines, and GERD who presents to the ED with?difficulty word finding. Pt seen and evaluated at bedside where she continues to experience significant expressive aphasia. Follows commands and is able to write in complete sentences, but with very limited vocabulary and able to speak in 1-2 word sentences only. HPI supplemented by sister at bedside. Pt reports was in her normal state of health prior to symptom onset this morning. 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 POC was apparently in the 400s. Initially called PCP and then efwwyu-ui-jea who drove her to the ED for further evaluation. Pt has expressive aphasia progressively worsened during car ride. Initially pt was having difficulty speaking multi-syllabic words, then eventually unable to speak more than 1 or 2 words at a time. Also complains of 3/10 headache, chest heaviness, generalized weakness, and feeling off balance, as well as discomfort with urination which feels like previous UTIs. Pt denies shortness or breath or difficulty breathing. No fever, chills, nausea, vomiting, abdominal pain. Of note, in 2019 pt presented to [facility] with right-sided facial droop. Pt had CTA at that time which showed right ICA stenosis thought to be congenital in nature. Additional workup for stroke was negative, and pt was diagnosed with a complex migraine. Pt has been experiencing increasing life stressors recently, including loss of job and impending loss of health insurance. Has been on Ozempic as monotherapy for lla-qllpymx-mereufowz type 2 diabetes, though has been unable to purchase the medication in the past 1-2 months. In the ED pt was hypertensive up to 164/87, vitals otherwise stable and WNL. Labs were significant for platelets 121, POC 243, and lactic acid 2.2. No leukocytosis. Stable H&H. No significant electrolyte abnormalities. Renal function WNL. Hepatic function WNL. Troponin negative. Beta hydroxybutyrate 0.08. VBG reassuring. UA with positive nitrites, negative leukocyte esterase, 0-5 wbc's, and 4+ bacteria. Tested negative for flu, COVID, RSV. CTA of head negative for acute intracranial process. 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 EKG demonstrated normal sinus rhythm with sinus arrhythmia but no evidence of ST elevations or depressions. Pt was treated in the ED with IVF. Pt is admitted to the hospital for treatment and further evaluation of expressive aphasia concerning for acute CVA. hospital course: Patient was admitted for expressive aphasia. MRI was negative for acute CVA. etiology possibly complex migraine. for DM with hyperglycemia due to lost insurance, will start on glipizide 2.5mg daily as not tolerant of metformin, should continue to monitor sugars as will likely need adjustments as outpaitent. for UTI treated with rocpehin, will discharge on 3 more days ceftin, culture growing GNR and should be follow up. for pafib continue on metoprolol and eliquis, for SLE not on meds. for neuropathy on lyrica. symtpoms have resolved, will be discharged home. Time Attestation Discharge Coordination Time (in mins): 34 Quality: Safe Use of Opioids Does Pt have an Active Cancer Diagnosis on the Problem List?: No Quality: Stroke Does the patient have a stroke diagnosis?: No Physical Exam Vital Signs: Vital Signs: Last Vital Signs Temp 98.0 F 07/30/24 11:14 Pulse 70 07/30/24 11:14 Resp 18 07/30/24 11:14 BP 137/76 07/30/24 11:14 Pulse Ox 96 07/30/24 11:14 O2 Del Method Room Air 07/30/24 11:14 BMI result Body Mass Index 28.6 General: AO X 3, no acute distress Resp: CTA bilateral, no accessory muscles used CVS: S1,S2,RRR GI: soft, non tender, non distended Neuro: motor grossly intact, alert Psych: appropriate affect, appropriate insight DS: Data Data Completed and Pending Labs on day of discharge: Laboratory Results - last 24 hr 07/29/24 07/29/24 07/29/24 11:33 11:47 11:48 WBC 5.0 RBC 4.44 Hgb 12.6 Hct 36.9 L MCV 83.1 MCH 28.4 MCHC 34.1 RDW 13.8 Plt Count 121 L MPV 10.3 Immature Gran % (Auto) 0.6 H Neut % (Auto) 74.0 H Lymph % (Auto) 18.6 L [place] % (Auto) 5.2 Eos % (Auto) 1.2 Baso % (Auto) 0.4 Lymph # (Auto) 0.9 L [place] # (Auto) 0.3 Eos # (Auto) 0.1 Baso # (Auto) 0.0 Abs Immat Gran (auto) 0.03 Absolute Neuts (auto) 3.7 Absolute Nucleated RBC 0.000 Nucleated RBC % (auto) 0.0 PT 11.4 Whole Blood PT 12.0 INR 1.0 Whole Blood INR 1.0 APTT 33.4 VBG pH VBG pCO2 VBG pO2 VBG HCO3 VBG O2 Saturation VBG Base Excess Sodium 137 Potassium 4.1 Chloride 106 Carbon Dioxide 24 Anion Gap 11 L BUN 17 H Creatinine 0.61 Estim Creat Clear Calc 101.6 Estimated GFR > 60 POC Glucose Random Glucose 208 H Estimat Average Glucose 146 Hemoglobin A1c % 6.7 H Lactic Acid 2.2 H* Lactic Acid F/U @ 2Hr Calcium 9.6 Magnesium 2.0 Total Bilirubin 0.3 Direct Bilirubin 0.1 AST 18 ALT 20 Alkaline Phosphatase 111 Troponin I High Sens < 2.7 Total Protein 5.9 L Albumin 3.7 Triglycerides 242 H Cholesterol 134 LDL Cholesterol, Calc 47 HDL Cholesterol 39 L Beta-Hydroxybutyrate 0.08 Urine Color Urine Appearance Urine pH Ur Specific [place] Urine Protein Urine Glucose (UA) Urine Ketones Urine Blood Urine Nitrite Ur Leukocyte Esterase Urine RBC Urine WBC Ur Squamous Epith Cells Urine Bacteria Hyaline Casts Influenza Type A (PCR) Influenza Type B (PCR) RSV RNA Qual (PCR) SARS-CoV-2 RNA (RT-PCR) 07/29/24 07/29/24 07/29/24 11:56 12:28 14:26 WBC RBC Hgb Hct MCV MCH MCHC RDW Plt Count MPV Immature Gran % (Auto) Neut % (Auto) Lymph % (Auto) [place] % (Auto) Eos % (Auto) Baso % (Auto) Lymph # (Auto) [place] # (Auto) Eos # (Auto) Baso # (Auto) Abs Immat Gran (auto) Absolute Neuts (auto) Absolute Nucleated RBC Nucleated RBC % (auto) PT Whole Blood PT INR Whole Blood INR APTT VBG pH 7.40 VBG pCO2 38 VBG pO2 75 VBG HCO3 24 VBG O2 Saturation 94.0 VBG Base Excess -0.1 Sodium Potassium Chloride Carbon Dioxide Anion Gap BUN Creatinine Estim Creat Clear Calc Estimated GFR POC Glucose Random Glucose Estimat Average Glucose Hemoglobin A1c % Lactic Acid Lactic Acid F/U @ 2Hr 2.3 H* Calcium Magnesium Total Bilirubin Direct Bilirubin AST ALT Alkaline Phosphatase Troponin I High Sens Total Protein Albumin Triglycerides Cholesterol LDL Cholesterol, Calc HDL Cholesterol Beta-Hydroxybutyrate Urine Color Yellow Urine Appearance Clear Urine pH 6.5 Ur Specific [place] >= 1.030 H Urine Protein Negative Urine Glucose (UA) >=1000 H Urine Ketones Negative Urine Blood Negative Urine Nitrite Positive H Ur Leukocyte Esterase Negative Urine RBC 0-2 Urine WBC 0-5 Ur Squamous Epith Cells 0-2 Urine Bacteria 4+ Hyaline Casts 0-2 Influenza Type A (PCR) NEGATIVE Influenza Type B (PCR) NEGATIVE RSV RNA Qual (PCR) NEGATIVE SARS-CoV-2 RNA (RT-PCR) NEGATIVE 07/29/24 07/29/24 07/30/24 17:51 20:15 06:16 WBC RBC Hgb Hct MCV MCH MCHC RDW Plt Count MPV Immature Gran % (Auto) Neut % (Auto) Lymph % (Auto) [place] % (Auto) Eos % (Auto) Baso % (Auto) Lymph # (Auto) [place] # (Auto) Eos # (Auto) Baso # (Auto) Abs Immat Gran (auto) Absolute Neuts (auto) Absolute Nucleated RBC Nucleated RBC % (auto) PT Whole Blood PT INR Whole Blood INR APTT VBG pH VBG pCO2 VBG pO2 VBG HCO3 VBG O2 Saturation VBG Base Excess Sodium Potassium Chloride Carbon Dioxide Anion Gap BUN Creatinine Estim Creat Clear Calc Estimated GFR POC Glucose 134 H 175 H 177 H Random Glucose Estimat Average Glucose Hemoglobin A1c % Lactic Acid Lactic Acid F/U @ 2Hr Calcium Magnesium Total Bilirubin Direct Bilirubin AST ALT Alkaline Phosphatase Troponin I High Sens Total Protein Albumin Triglycerides Cholesterol LDL Cholesterol, Calc HDL Cholesterol Beta-Hydroxybutyrate Urine Color Urine Appearance Urine pH Ur Specific [place] Urine Protein Urine Glucose (UA) Urine Ketones Urine Blood Urine Nitrite Ur Leukocyte Esterase Urine RBC Urine WBC Ur Squamous Epith Cells Urine Bacteria Hyaline Casts Influenza Type A (PCR) Influenza Type B (PCR) RSV RNA Qual (PCR) SARS-CoV-2 RNA (RT-PCR) 07/30/24 07/30/24 06:22 09:29 WBC 4.7 L RBC 4.67 Hgb 13.0 Hct 38.9 MCV 83.3 MCH 27.8 MCHC 33.4 RDW 13.9 Plt Count 125 L MPV 10.2 Immature Gran % (Auto) Neut % (Auto) Lymph % (Auto) [place] % (Auto) Eos % (Auto) Baso % (Auto) Lymph # (Auto) [place] # (Auto) Eos # (Auto) Baso # (Auto) Abs Immat Gran (auto) Absolute Neuts (auto) Absolute Nucleated RBC 0.000 Nucleated RBC % (auto) 0.0 PT Whole Blood PT INR Whole Blood INR APTT VBG pH VBG pCO2 VBG pO2 VBG HCO3 VBG O2 Saturation VBG Base Excess Sodium Potassium Chloride Carbon Dioxide Anion Gap BUN Creatinine Estim Creat Clear Calc Estimated GFR POC Glucose 296 H Random Glucose Estimat Average Glucose Hemoglobin A1c % Lactic Acid Lactic Acid F/U @ 2Hr Calcium Magnesium Total Bilirubin Direct Bilirubin AST ALT Alkaline Phosphatase Troponin I High Sens Total Protein Albumin Triglycerides Cholesterol LDL Cholesterol, Calc HDL Cholesterol Beta-Hydroxybutyrate Urine Color Urine Appearance Urine pH Ur Specific [place] Urine Protein Urine Glucose (UA) Urine Ketones Urine Blood Urine Nitrite Ur Leukocyte Esterase Urine RBC Urine WBC Ur Squamous Epith Cells Urine Bacteria Hyaline Casts Influenza Type A (PCR) Influenza Type B (PCR) RSV RNA Qual (PCR) SARS-CoV-2 RNA (RT-PCR) Preliminary micro results at discharge 07/29/24 Unknown Urine Culture - Preliminary Urine clean catch - Clean Catch Midstream Gram negative dre Discharge Plan Discharge Anticipated Discharge Date/Time: 07/30/24 11:18 Patient Disposition: Home, Self-Care Discharge Diagnosis: expressive aphasia, hyperglycemia Referrals: Michael Snow MD [Primary Care Provider] - Discharge Medications: New cefuroxime axetil 250 mg tablet 250 mg PO BID Qty: 6 0RF glipizide 2.5 mg tablet extended release 24hr 2.5 mg PO DAILY Qty: 90 0RF Continued pramipexole 0.125 mg tablet 0.375 mg PO DAILY omeprazole 20 mg capsule,delayed release(DR/EC) 20 mg PO DAILY@0630 metoprolol succinate 25 mg tablet extended release 24 hr 25 mg PO DAILY dutasteride 0.5 mg capsule 0.5 mg PO DAILY pregabalin 25 mg capsule 25 mg PO BEDTIME Tremfya 100 mg/mL auto-injector 100 mg SUBCUT Q8W magnesium glycinate 100 mg magnesium Capsule 100 mg PO DAILY cyanocobalamin (vitamin B-12) [Vitamin B-12] 500 mcg Tablet 1,000 mcg PO DAILY cholecalciferol (vitamin D3) [Vitamin D3] 50 mcg (2,000 unit) Tablet 50 mcg PO DAILY Eliquis 5 mg tablet 5 mg PO BID Discharge Orders: Discharge Order (Routine); Ordered 07/30/24 Ordered By: Prashant Mendoza Diet: Advance to usual diet Activity on Discharge: As tolerated Stand Alone Forms: Patient Portal Discharge page Print Language: Tajik Care Plan Goals: Manage sugars Health Concerns: dm Plan of Treatment: will start glipizide 2.5mg daily, may need to adjust in future, monitor sugars 3 more days ceftin for uti Assessment: see above
[2024-07-30 11:41] LABS: Glucose, Whole Blood 163 mg/dL (60-115)
--- NOTE | 2024-07-30 12:23 | MHC.CM.PN ---
EMR REVIEWED, PT W/EXPRESSIVE THAT IS RESOLVED, CM MET W/PT WHO IS A&OX4, FULLY INDEP W/ALL CARE AND CURRENTLY WORKING AT [employer] AND UNCERTAIN IF SHE WILL HAVE A JOB PAST SATURDAY, PT USES A CPAP AND NO OTHER DME/SERVICES, GOAL IS HOME NO SERVICES. PCP ON FILE VERIFIED AND PT REPORTS SHE HAS A HCP W/HER AND DTR YONATHAN TADEO, COPY REQUSTED.
--- NOTE | 2024-07-30 12:56 | MHC.SP.ADU ---
Referring provider: Mehul Sousa Reason for Referral: Assess Speech/Language; presenting with expressive aphasia Type of Treatment: 77327 Evaluation Speech Sound Production WITH Language Date of Plan of Treatment: 07/31/23 Onset of Symptoms/Illness: 07/30/23 Date Treatment Started: 07/31/23 Medical Diagnosis: (1) Expressive aphasia: Concerning for acute CVA vs complex migraine Primary Speech Language Diagnosis: R48.2 Apraxia Secondary Speech Language Diagnosis: History Pt is a 59-year-old female with a PMH significant for paroxysmal AFib on Eliquis s/p ablation,?lupus, boz-klepfwp-ktkimyvvf type 2 diabetes, peripheral neuropathy, hx of complex migraines, and GERD who presented to the ED on 06/28/24 with?difficulty word finding. Pt reports she was in her normal state of health prior to symptom onset yesterday morning. 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 Patient reports at this assessment (07/30) that issues have mostly resolved, she is able to speak in full sentences, is not struggling to find words. Brain imaging studies have been mostly unremarkable. Medical History: Other: Lupus (systemic lupus erythematosus) Paroxysmal A-fib Medication List: See chart Recent Hospitalizations: No Respiratory Needs: Room Air Patient Orientation: Alert & Oriented x 4 Social History: Employment Status: Principal Programmer Employed Highest level of education obtained: Completed Bachelor's Current Living Situation: Lives in private residence. Assistive Devices in use: Glasses/Contacts Comment: Past Speech Language Therapy: None Other Therapies Seen in Current Calendar Year: None Other: Swallowing History: Dysphagia Specific: Comments: Did not assess/not indicated/WFL Reported Speech, Language, Cognition difficulties: Speaking Comments: Patient reported sudden onset expressive aphasia 07/29/24, issues are mostly resolved today (07/30/24) Quality of Life: Good Patient Stated Goal of Speech-Language Therapy: Assess for any residual aphasia Assessment Speech Production: Articulate Clinical Impression: Intact Observations: Patient presents with episodic difficulty producing multisyllabic words. Patient able to use strategy of tapping syllables to sequence word (e.g. Religious, Possibility, peculular ). Symptomatically presenting as mild speech apraxia, will likely resolve as other symptoms have consistently improved. Informal Voice Assessment: Voice Loudness: Normal Voice Nasal Resonance: Normal Voice Oral Resonance: Normal Voice Phonatory-based Quality: Normal Voice Pitch: Normal Voice Other Observations: Clinical Impression: Intact Clinicial Observations: Tests of Speech & Lang Adults: BNT Clinical Impression: Intact Observations: Patient was administered the [place] Naming Test, short form, producing labels for 15/15 items; patient had one episode of hesitancy on final item palette, however after describing it's use accurately retrieved the word. Patient was further assessed producing a fluent narrative for the Cookbryce Theft picture : patient produced a fluent narrative with no hesitancies' or word finding diffficulty. Patient reports that she feels her expressive language is back at her baseline. Impressions and Recommendations Summary: Patient's aphasia/word finding difficulties present as resolved, with patient demonstrating no difficulties with word retrieval or expressive language. Patient reports her expressive language is back to normal. Patient did however present with mild speech sequencing issues (mild apraxia), struggling at times to produce multisyllabic words (difficulty initiating and sequencing). Patient was instructed in a strategy (tapping the syllable sequence), which she demonstrated well, and with the strategy produced several multisyllabic words. Issue is likely to resolve (as other issues have done so), however patient advised if symptoms persist, she should consider requesting speech/outpatient therapy. 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
== END 2024-07-30 13:23 | disposition home or self-care (01) | DRG 103 ==
LOC: HO.ED 13:29 → HO.EDOVER 13:38 → HO.IMC 16:08
PROVIDERS: Admitting Provider Student in an Organized Health Care Education/Training Program; Emergency Provider Emergency Medicine Emergency Medical Services; PCP Internal Medicine; Visit Provider Internal Medicine
DX: G43.109 Migraine with aura, not intractable, without status migrainosus (principal); E87.21 Acute metabolic acidosis; R47.01 Aphasia; N39.0 Urinary tract infection, site not specified; E11.65 Type 2 diabetes mellitus with hyperglycemia; M32.9 Systemic lupus erythematosus, unspecified; I48.0 Paroxysmal atrial fibrillation; I10 Essential (primary) hypertension; E11.42 Type 2 diabetes mellitus with diabetic polyneuropathy; T38.3X6A Underdosing of insulin and oral hypoglycemic [antidiabetic] drugs, initial encounter; Z91.120 Patient's intentional underdosing of medication regimen due to financial hardship; Z20.822 Contact with and (suspected) exposure to COVID-19; Z87.891 Personal history of nicotine dependence; Z79.01 Long term (current) use of anticoagulants; Z79.899 Other long term (current) drug therapy
CPT/HCPCS: 0241U; 36415; 70450; 70496; 70498; 70551; 80048; 80061; 80076; 81001; 82010; 82803; 82947; 83036; 83605; 83735; 84484; 85025; 85027; 85610; 85730; 87040; 87086; 87088; 87186; 92523; 93005; 97161; 97165; 99222; 99285; J0696; Q9967

== ENCOUNTER → 2024-07-29 11:14 | Outpatient (BNV) | payer OTHER, SELFPAY | PROVIDERS: Admitting Provider Student in an Organized Health Care Education/Training Program; Emergency Provider Emergency Medicine Emergency Medical Services; PCP Internal Medicine; Visit Provider Radiology Diagnostic Radiology | DX: R47.01 Aphasia (principal) | CPT/HCPCS: 70450; 70496; 70498; 70551 ==

== ENCOUNTER → 2024-07-29 12:43 | Outpatient (BNV) | payer OTHER, SELFPAY | PROVIDERS: Admitting Provider Student in an Organized Health Care Education/Training Program; Emergency Provider Emergency Medicine Emergency Medical Services; PCP Internal Medicine; Visit Provider Internal Medicine | DX: I49.8 Other specified cardiac arrhythmias (principal) | CPT/HCPCS: 93010 ==

== ENCOUNTER → 2024-07-29 13:38 | Outpatient (BNV) | payer OTHER, SELFPAY | PROVIDERS: Admitting Provider Student in an Organized Health Care Education/Training Program; Emergency Provider Emergency Medicine Emergency Medical Services; PCP Internal Medicine; Visit Provider Student in an Organized Health Care Education/Training Program | DX: R47.01 Aphasia (principal) | CPT/HCPCS: 99223; 99239 ==

== ENCOUNTER → 2024-07-29 13:38 | Outpatient (BNV) | payer OTHER, SELFPAY | PROVIDERS: Admitting Provider Student in an Organized Health Care Education/Training Program; Emergency Provider Emergency Medicine Emergency Medical Services; PCP Internal Medicine; Visit Provider Psychiatry & Neurology Neurology | DX: F80.1 Expressive language disorder (principal); F41.9 Anxiety disorder, unspecified | CPT/HCPCS: 99223 ==